=== PATIENT | female | born 1955 | race African-American/Black ===

== ENCOUNTER 2021-09-16 10:10 | Outpatient (CLI) | payer MEDICARE, MEDICAID | END 2021-09-16 10:11 | disposition home or self-care (01) | LOC: CSHMAMMO 10:10 | PROVIDERS: ATTEND Family Medicine | DX: N64.4 Mastodynia (principal); J44.9 Chronic obstructive pulmonary disease, unspecified | CPT/HCPCS: 77065; 94060; 94726; 94729; 94760; G0279 ==